=== PATIENT | male | born 1970 | race Caucasian/White ===

== ENCOUNTER 2024-04-03 17:42 | Emergency (ER) | payer OTHER ==
[2024-04-03 17:58] VITALS: TEMP 98.8
--- NOTE | 2024-04-03 18:33 | ED ---
GI Bleed HPI - General Source: patient, RN notes reviewed Mode of arrival: ambulatory Limitations: no limitations <Ramona Buchanan - Last Filed: 04/03/24 18:31> <Channing Ramírez - Last Filed: 04/03/24 20:27> - General Source: patient, family, RN notes reviewed Mode of arrival: ambulatory Limitations: no limitations <Sarah Beth Cruz - Last Filed: 04/03/24 20:57> - General Chief complaint: GI Bleed Stated complaint: Dark stool Time Seen by Provider: 04/03/24 18:31 - History of Present Illness Initial comments: Quick [id number] male presenting with dark stool x 1 day. States he was recently admitted to [facility] where they discovered a bleeding esophageal mass. He reports they attempted to cauterize the mass but were unsuccessful, transferring him to [facility]. He was discharged 2 days ago but reports he began having dark stool again today. (Ramona Buchanan) 31-year-old male presented to the ER with a chief complaint of dark tarry stools. Patient was seen at [facility] and discovered to have a nonbleeding esophageal mass. He was transferred to [facility] for further evaluation and treatment. Patient states that he was released from [facility] 2 days ago and he was diagnosed with esophageal mass and had multiple biopsies completed. He states he had 5 blood transfusions due to anemia at that time. He states he also had an ultrasound of his bilateral upper extremities due to edema at that time and was found to have a small blood clot in his right upper extremity. He was not started on blood thinners due to the esophageal bleeding. He states the day he left his hospital he noticed his bilateral lower extremities were edematous. He denies any history of heart failure, shortness of breath, orthopnea or exertional dyspnea. He states earlier today he had an episode of melena which brought him to the ER for concern of further bleeding. He denies any dizziness, lightheadedness, fevers, chills, chest pain, abdominal pain, urinary complaints. (Sarah Beth Cruz) - Related Data Allergies Allergy/AdvReac Type Severity Reaction Status Date / Time No Known Allergies Allergy Verified 04/03/24 17:58 Review of Systems ROS Other: All systems not noted in ROS Statement are negative. <Ramona Buchanan - Last Filed: 04/03/24 18:31> ROS Other: All systems not noted in ROS Statement are negative. <Channing Ramírez - Last Filed: 04/03/24 20:27> ROS Other: All systems not noted in ROS Statement are negative. <Sarah Beth Cruz - Last Filed: 04/03/24 20:57> ROS Statement: Those systems with pertinent positive or pertinent negative responses have been documented in the HPI. Past Medical History Additional Past Medical History / Comment(s): GI, Esophagus mass. History of Any Multi-Drug Resistant Organisms: None Reported Past Surgical History: No Surgical Hx Reported Past Psychological History: No Psychological Hx Reported Smoking Status: Never smoker Past Alcohol Use History: None Reported Past Drug Use History: None Reported <Ramona Buchanan - Last Filed: 04/03/24 18:31> General Exam Limitations: no limitations <Ramona Buchanan - Last Filed: 04/03/24 18:31> General appearance: alert, in no apparent distress Respiratory exam: Present: normal lung sounds bilaterally. Absent: respiratory distress, wheezes, rales, rhonchi, stridor Cardiovascular Exam: Present: regular rate, normal rhythm, normal heart sounds. Absent: systolic murmur, diastolic murmur, rubs, gallop, clicks GI/Abdominal exam: Present: soft, normal bowel sounds. Absent: distended, tenderness, guarding, rebound, rigid Extremities exam: Present: other (Nonpitting bilateral lower extremity edema) Neurological exam: Present: alert, oriented X3, CN II-XII intact Skin exam: Present: pallor <Sarah Beth Cruz - Last Filed: 04/03/24 20:57> - General Exam Comments Initial Comments: Visual Physical Exam Vital signs reviewed General: Well-appearing, nontoxic, no acute distress. Head: Normocephalic, atraumatic Eyes: PERRLA, EOMI ENT: Airway patent Chest: Nonlabored breathing Skin: No visual rash, normal skin tone Neuro: Alert and oriented 3 Musculoskeletal: No gross abnormalities (Ramona Buchanan) Course Vital Signs 04/03/24 17:55 Temperature 98.8 F Pulse Rate 97 Respiratory 20 Rate Blood Pressure 140/76 O2 Sat by Pulse 98 Oximetry Medical Decision Making <Ramona Buchanan - Last Filed: 04/03/24 18:31> - Lab Data Result diagrams: 04/03/24 19:56 04/03/24 19:56 <Channing Ramírez - Last Filed: 04/03/24 20:27> - Lab Data Result diagrams: 04/03/24 19:56 04/03/24 19:56 - EKG Data -: EKG Interpreted by Me - Radiology Data Radiology results: report reviewed, image reviewed <Sarah Beth Cruz - Last Filed: 04/03/24 20:57> - Medical Decision Making I completed the quick note portion of this chart signed Ramona Buchanan PA-C (Ramona Buchanan) I did reevaluate patient myself. Patient denies ever having any chest discomfort. Patient does have recent esophageal large mass with bleeding and cauterization. Patient is having black stools again. EKG concerning for ST changes, more so lateral. I did discuss the case with Dr. Wilson who agrees patient is not a candidate for Surveyor and not a candidate for anticoagulation. Patient will be transferred back to [facility]. (Channing Ramírez) Was pt. sent in by a medical professional or institution (, CATHLEEN, CORRECTIONAL NURSE, urgent care, hospital, or jail...) When possible be specific @ -No Did you speak to anyone other than the patient for history (EMS, parent, family, police, friend...)? What history was obtained from this source @ -Family aiding in HPI and past medical history. Did you review nursing and triage notes (agree or disagree)? Why? @ -I reviewed and agree with nursing and triage notes Were old charts reviewed (outside hosp., previous admission, EMS record, old EKG, old radiological studies, urgent care reports/EKG's, jail records)? Report findings @ -No old charts were reviewed Differential Diagnosis (chest pain, altered mental status, abdominal pain women, abdominal pain men, vaginal bleeding, weakness, fever, dyspnea, syncope, headache, dizziness, GI bleed, back pain, seizure, CVA, palpatations, mental health, musculoskeletal)? @ -Differential GI Bleed: Esophageal varices, aortoenteric fistula, Geni- Valencia, gastritis, peptic ulcer disease, diverticulosis, inflammatory bowel disease, hemorrhoids, fissure, colitis, malignancy, Meckels diverticulum, this is not meant to be an all-inclusive list. EKG interpreted by me (3pts min.). @ -As above X-rays interpreted by me (1pt min.). @ -None done CT interpreted by me (1pt min.). @ -None done U/S interpreted by me (1pt. min.). @ -Bilateral ultrasound venous Doppler negative for acute DVTs. What testing was considered but not performed or refused? (CT, X-rays, U/S, labs)? Why? @ -None What meds were considered but not given or refused? Why? @ -None Did you discuss the management of the patient with other professionals (professionals i.e. Dr., PA, CORRECTIONAL NURSE, lab, RT, psych nurse, social organization professor, air conditioning manager, teacher, jailer/training officer, geriatric case manager)? Give summary @ -Yes, case discussed with [facility], Dr. Rusty Talavera accepting physician. Was smoking cessation discussed for >3mins.? @ -No Was critical care preformed (if so, how long)? @ -No Were there social determinants of health that impacted care today? How? (Homelessness, low income, unemployed, alcoholism, drug addiction, transportation, low edu. Level, literacy, decrease access to med. care, usp, rehab)? @ -No Was there de-escalation of care discussed even if they declined (Discuss DNR or withdrawal of care, Hospice)? DNR status @ -No What co-morbidities impacted this encounter? (DM, HTN, Smoking, COPD, CAD, Cancer, CVA, ARF, Chemo, Hep., AIDS, mental health diagnosis, sleep apnea, morb id obesity)? @ -Esophageal mass Was patient admitted / discharged? Hospital course, mention meds given and route, prescriptions, significant lab abnormalities, going to OR and other pertinent info. @ -Transfer 54-year-old male presented to ER with a chief complaint of melena. History and physical exam completed. Vitals upon arrival remarkable for temperature 98.8, heart rate 97, respiratory rate 20, blood pressure 140/76, oxygen saturation 98% on room air. Patient in no signs of acute distress but is pale appearing. Exam significant for bilateral nonpitting lower extremity edema. Patient denies any shortness of breath, dizziness, lightheadedness, abdominal pain or chest pain. Laboratory studies obtained remarkable for white blood cell count 11.4 with a left shift, normocytic normochromic anemia hemoglobin 9.1, sodium 136. BMP and bilateral venous Doppler lower extremities performed due to edema. BNP 659. Ultrasound venous Doppler negative for DVTs bilaterally. Stool occult positive. EKG showing NSR with ST segment elevation in inferiolateral leads. EKG changes discussed with my attending, Dr. Ramírez who spoke with cardiology. Patient is not a candidate for heparinization or catheterization at this time due to suspected malignancy and GI bleed. Advised on transfer at this time to [facility] for continuity of care and GI bleed. Case discussed with Dr. Rusty Talavera, at [facility] who accepted transfer. Patient not given IV fluids due to bilateral lower extremity edema. Patient agreeable for transfer at this time. Patient transferred in stable condition via EMS to [facility]. Case discussed with ED attending, Dr. Ramírez. Undiagnosed new problem with uncertain prognosis? @ -Yes Drug Therapy requiring intensive monitoring for toxicity (Heparin, Nitro, Insulin, Cardizem)? @ -No Were any procedures done? @ -No Diagnosis/symptom? @ -GI bleed/esophageal mass/anemia Acute, or Chronic, or Acute on Chronic? @ -Acute Uncomplicated (without systemic symptoms) or Complicated (systemic symptoms)? @ -Complicated Side effects of treatment? @ -No Exacerbation, Progression, or Severe Exacerbation? @ -No Poses a threat to life or bodily function? How? (Chest pain, [place], [place], pneumonia, PE, COPD, DKA, ARF, appy, cholecystitis, CVA, Diverticulitis, Homicidal, Suicidal, threat to staff... and all critical care pts) @ -Possibly (Sarah Beth Cruz) - Lab Data Lab Results 04/03/24 04/03/24 04/03/24 Range/Units 19:53 19:55 19:56 WBC 11.4 H (3.8-10.6) k/uL RBC 2.88 L (4.30-5.90) m/uL Hgb 9.1 L (13.0-17.5) gm/dL Hct 28.3 L (39.0-53.0) % MCV 98.5 (80.0-100.0) fL MCH 31.7 (25.0-35.0) pg MCHC 32.2 (31.0-37.0) g/dL RDW 17.9 H (11.5-15.5) % Plt Count 254 (150-450) k/uL MPV 8.5 Neutrophils % 81 % Lymphocytes % 10 % Monocytes % 6 % Eosinophils % 1 % Basophils % 0 % Neutrophils # 9.3 H (1.3-7.7) k/uL Lymphocytes # 1.2 (1.0-4.8) k/uL Monocytes # 0.7 (0-1.0) k/uL Eosinophils # 0.1 (0-0.7) k/uL Basophils # 0.1 (0-0.2) k/uL Hypochromasia Slight Poikilocytosis Slight Anisocytosis Slight Macrocytosis Slight Sodium (137-145) mmol/L Potassium (3.5-5.1) mmol/L Chloride (98-107) mmol/L Carbon Dioxide (22-30) mmol/L Anion Gap mmol/L BUN (9-20) mg/dL Creatinine (0.66-1.25) mg/dL Est GFR (CKD-EPI)AfAm (>60 ml/min/1.73 sqM) Est GFR (CKD-EPI)NonAf (>60 ml/min/1.73 sqM) Glucose (74-99) mg/dL Calcium (8.4-10.2) mg/dL Total Bilirubin (0.2-1.3) mg/dL AST (17-59) U/L ALT (4-49) U/L Alkaline Phosphatase (38-126) U/L NT-Pro-B Natriuret Pep pg/mL Total Protein (6.3-8.2) g/dL Albumin (3.5-5.0) g/dL Stool Occult Blood Positive (Negative) Blood Type Blood Type Confirm O Positive Blood Type Recheck Bld Type Recheck Status Antibody Screen Spec Expiration Date 04/03/24 04/03/24 Range/Units 19:56 19:56 WBC (3.8-10.6) k/uL RBC (4.30-5.90) m/uL Hgb (13.0-17.5) gm/dL Hct (39.0-53.0) % MCV (80.0-100.0) fL MCH (25.0-35.0) pg MCHC (31.0-37.0) g/dL RDW (11.5-15.5) % Plt Count (150-450) k/uL MPV Neutrophils % % Lymphocytes % % Monocytes % % Eosinophils % % Basophils % % Neutrophils # (1.3-7.7) k/uL Lymphocytes # (1.0-4.8) k/uL Monocytes # (0-1.0) k/uL Eosinophils # (0-0.7) k/uL Basophils # (0-0.2) k/uL Hypochromasia Poikilocytosis Anisocytosis Macrocytosis Sodium 136 L (137-145) mmol/L Potassium 3.8 (3.5-5.1) mmol/L Chloride 106 (98-107) mmol/L Carbon Dioxide 25 (22-30) mmol/L Anion Gap 5 mmol/L BUN 11 (9-20) mg/dL Creatinine 0.92 (0.66-1.25) mg/dL Est GFR (CKD-EPI)AfAm >90 (>60 ml/min/1.73 sqM) Est GFR (CKD-EPI)NonAf >90 (>60 ml/min/1.73 sqM) Glucose 130 H (74-99) mg/dL Calcium 9.0 (8.4-10.2) mg/dL Total Bilirubin 0.8 (0.2-1.3) mg/dL AST 46 (17-59) U/L ALT 24 (4-49) U/L Alkaline Phosphatase 72 (38-126) U/L NT-Pro-B Natriuret Pep 659 pg/mL Total Protein 5.2 L (6.3-8.2) g/dL Albumin 3.3 L (3.5-5.0) g/dL Stool Occult Blood (Negative) Blood Type O Positive Blood Type Confirm Blood Type Recheck No Previous Record Bld Type Recheck Status CABO Indicated Antibody Screen NEGATIVE Spec Expiration Date 04/06/20242355 - EKG Data EKG Comments: EKG taken at 19: 59 showing a normal sinus rhythm with ST elevation in inferior and lateral leads. Ventricular rate 85, OH interval 159, QRS duration 90, QT/QTc 340/382. EKG taken at 20: 09 showing a normal sinus rhythm with ST elevation in inferior lateral leads. Ventricular rate 84, OH interval 153, QRS duration 98, QT/QTc 3 50/392. (Sarah Beth Cruz) Disposition <Ramona Buchanan - Last Filed: 04/03/24 18:31> <Channing Ramírez - Last Filed: 04/03/24 20:27> Time of Disposition: 20:54 - Out of Hospital Transfer - Req. Specs Out of Hospital Transfer - Requested Specifics: Other Emergency Center ([facility]) <Sarah Beth Cruz - Last Filed: 04/03/24 20:57> Clinical Impression: GI bleed, Anemia, Esophageal mass, ST elevation Disposition: OTHER INSTITUTION NOT DEFINED Condition: Stable Referrals: None,Stated [Primary Care Provider] - 1-2 days
[2024-04-03 20:08] LABS: Anisocytosis Slight; Basophils # (A) 0.1 k/uL (0-0.2); Basophils % (A) 0 %; Eosinophils # (A) 0.1 k/uL (0-0.7); Eosinophils % (A) 1 %; HCT 28.3 % (39.0-53.0); HGB 9.1 gm/dL (13.0-17.5); Hypochromasia Slight; Lymphocytes # (A) 1.2 k/uL (1.0-4.8); Lymphocytes % (A) 10 %; MCH 31.7 pg (25.0-35.0); MCHC 32.2 g/dL (31.0-37.0); MCV 98.5 fL (80.0-100.0); Macrocytosis Slight; Mean Platelet Volume 8.5; Monocytes # (A) 0.7 k/uL (0-1.0); Monocytes % (A) 6 %; Neutrophils # (A) 9.3 k/uL (1.3-7.7); Neutrophils % (A) 81 %; Platelet Count 254 k/uL (150-450); Poikilocytosis Slight; RBC 2.88 m/uL (4.30-5.90); RDW 17.9 % (11.5-15.5); WBC 11.4 k/uL (3.8-10.6)
[2024-04-03 20:10] LABS: ALT 24 U/L (4-49); AST 46 U/L (17-59); African American GFR (CKD) >90 (>60 ml/min/1.73 sqM); Albumin 3.3 g/dL (3.5-5.0); Alkaline Phosphatase 72 U/L (38-126); Anion Gap 5 mmol/L; Blood Urea Nitrogen 11 mg/dL (9-20); Carbon Dioxide 25 mmol/L (22-30); Chloride 106 mmol/L (98-107); Glucose 130 mg/dL (74-99); Non-African American GFR(CKD) >90 (>60 ml/min/1.73 sqM); Potassium 3.8 mmol/L (3.5-5.1); Sodium 136 mmol/L (137-145); Total Bilirubin 0.8 mg/dL (0.2-1.3); Total Protein 5.2 g/dL (6.3-8.2)
[2024-04-03 20:19] LABS: NT-Pro-B-Type Natriuretic Pept 659 pg/mL
--- NOTE | 2024-04-03 20:53 | US ---
EXAMINATION TYPE: US venous doppler duplex LE BI DATE OF EXAM: 04/03/2024 7:26 PM COMPARISON: NONE CLINICAL INDICATION: Male, 54 years old with history of eugenie LE edema; swelling in legs x 2 days, no h /o dvt SIDE PERFORMED: Bilat TECHNIQUE: The lower extremity deep venous system is examined utilizing real time linear array sonog jim with graded compression, doppler sonography and color-flow sonography. VESSELS IMAGED: Common Femoral Vein Deep Femoral Vein Greater Saphenous Vein * Femoral Vein Popliteal Vein Small Saphenous Vein * Proximal Calf Veins (* superficial vessels) The deep venous systems of both lower extremities from the common femoral remains to the proximal krystle f veins are patent and compressible with augmentable flow and with normal waveforms. IMPRESSION: No evidence of bilateral lower extremity DVT from the common femoral veins to the proximal calf veins
[2024-04-03 22:37] VITALS: BP 123/74; PULSE 90; RESP 18
== END 2024-04-03 22:43 | disposition other institution (70) ==
LOC: EC 17:42
DX: D64.9 Anemia, unspecified (principal); K92.2 Gastrointestinal hemorrhage, unspecified; K22.9 Disease of esophagus, unspecified; I21.3 ST elevation (STEMI) myocardial infarction of unspecified site
CPT/HCPCS: 36415; 80053; 82272; 83880; 85025; 86850; 86900; 86901; 93005; 93970; 99285